=== PATIENT | male | born 1975 | race Caucasian/White ===

== ENCOUNTER 2017-09-19 08:34 | Emergency (ER) | payer OTHER ==
[2017-09-19] MEDS ORDERED: TORAdol 30 mg Injection IM ONE (08:56)
[2017-09-19] MEDS ORDERED: TORAdol 30 mg Injection ONE (09:01)
--- NOTE | 2017-09-19 09:02 | ERPHSYRPT ---
- History of Present Illness Time Seen by Provider: 09/19/17 08:57 Source: patient Exam Limitations: no limitations Physician History: 41-year-old white male arrives with complaint of pain in his left wrist since this morning at 8:00. According to the patient he was at work he was working with a piece of metal being lifted with a boom and a chain,, patient states that the patient apparently had his left wrist hyperextended and he was struck with the chain. He complains of pain in his left wrist he denies any other injury. Past medical history negative. Past surgical history negative. Social history patient denies tobacco alcohol or illicit drug use. Occurred: this morning (8 AM this morning) Method of Injury: other (wrist hyperextended by piece of metal and struck with a chain at work) Quality: aching Extremities Pain Location: wrist: left Modifying Factors: Improves With: nothing Associated Symptoms: none Allergies/Adverse Reactions: No Known Drug Allergies Allergy (Unverified 09/19/17 08:59) - Review of Systems Constitutional: No Fever, No Chills Eyes: No Symptoms Ears, Nose, & Throat: No Symptoms Respiratory: No Cough, No Dyspnea Cardiac: No Chest Pain, No Edema, No Syncope Abdominal/Gastrointestinal: No Abdominal Pain, No Nausea, No Vomiting, No Diarrhea Genitourinary Symptoms: No Dysuria Musculoskeletal: Other (left wrist pain) Skin: No Rash Neurological: No Dizziness, No Focal Weakness, No Sensory Changes Psychological: No Symptoms Endocrine: No Symptoms All Other Systems: Reviewed and Negative - Past Medical History Pertinent Past Medical History: No - Past Surgical History Past Surgical History: No - Nursing Vital Signs Nursing Vital Signs: Initial Vital Signs Temperature 97.6 F 09/19/17 08:54 Pulse Rate 94 H 09/19/17 08:54 Respiratory Rate 16 09/19/17 08:54 Blood Pressure 154/100 09/19/17 08:54 O2 Sat by Pulse Oximetry 97 09/19/17 08:54 Pain Scale Pain Intensity 10 - Physical Exam General Appearance: mild distress Eyes, Ears, Nose, Throat Exam: moist mucous membranes Neck Exam: non-tender, supple Cardiovascular/Respiratory Exam: chest non-tender, normal breath sounds, regular rate/rhythm, no respiratory distress Abdominal Exam: non-tender, No guarding Back Exam: normal inspection, No vertebral tenderness Shoulder Exam: normal inspection, non-tender, no evidence of injury, normal ROM Elbow/Forearm Exam: normal inspection, non-tender, no evidence of injury, normal ROM Wrist Exam: No normal inspection (left wrist tender with palpation, mild edema left wrist radial aspect, decreased range of motion left wrist secondary to pain , left radial and ulnar pulses are intact 2 over 4, good capillary refill all fingers sensation intact to all fingers), No non-tender Hand Exam: normal inspection, non-tender, no evidence of injury, normal ROM DTR - Upper Extremity Exam: tricep (R): 2+, tricep (L): 2+ Neuro/Tendon Exam: normal sensation, normal motor functions Mental Status Exam: alert, oriented x 3, cooperative Skin Exam: normal color, warm, dry SpO2 Interpretation: normal - Course Nursing assessment & vital signs reviewed: Yes - Radiology Exams Left Wrist X-ray Interpretation: Interpreted by me, Other (nod displaced fracture ulnar aspect left distal radius) Ordered Tests: Active Orders 24 hr Category Date Time Status Splint STAT Care 09/19/17 09:28 Active WRIST (MIN 3 VIEWS) Stat Exams 09/19/17 08:56 Taken Medication Summary Discontinued Medications Generic Name Dose Route Start Last Admin Trade Name Freq PRN Reason Stop Dose Admin Ketorolac Tromethamine 60 mg 09/19/17 08:56 09/19/17 09:03 Toradol 30 Mg Injection IM 09/19/17 08:57 60 mg STAT ONE Administration Ketorolac Tromethamine Confirm 09/19/17 09:01 Toradol 30 Mg Injection Administered 09/19/17 09:02 Dose 60 mg .ROUTE .[facility] ONE - Progress Progress: improved Progress Note: 09/19/17 09:33 41-year-old white male arrives with complaint of pain in his left wrist after a metal part which was being moved with a boom and a chainn slipped hyperextending his left wrist and he states he was struck by the chain as well this occurred at work this morning. Patient has a nondisplaced cortical fracture of the distal left radius ulnar aspect. Patient was given Toradol injection Short arm splint was applied. Patient states he plans to go back to [place] where he lives. I will give patient instructions to either follow-up with his company doctor, [facility] orthopedics clinic, or the orthopedic physician of his choice. Will write for a small amount of [place] he has been instructed not to drive on this. - Departure Time of Disposition: 09:35 Departure Disposition: Home Clinical Impression: Closed fracture of left distal radius Qualifiers: Encounter type: sequela Fracture morphology: unspecified fracture morphology Qualified Code(s): S52.502S - Unspecified fracture of the lower end of left radius, sequela Condition: Fair Critical Care Time: No Instructions: Wrist Fracture Additional Instructions: Return home. Ice to left wrist 24-48 hours. [place] 5/325 #12 one orally every 4-6 hours as needed for pain. Follow-up with your company doctor, [facility] orthopedics clinic, or the orthopedic physician of your choice Thursday. Return for acute distress or for severe symptoms. no driving or hazardous activity on [place]. May alternatively take Tylenol as needed for pain every 4 hours do not double up Tylenol with [place]. no use of left hand until cleared by your orthopedist/company doctor. Prescriptions: Hydrocodone/Acetaminophen [[place] 5-325 Tablet] 1 tab PO Q4-6HPRN PRN #12 tablet MDD 6 PRN Reason: Pain
[2017-09-19 09:48] VITALS: BP 140/90; PULSE 99; O2SAT 99
--- NOTE | 2017-09-19 18:42 | XRAY ---
Indication: Pain following injury. Comparison: None 3 views of the left wrist demonstrates incomplete transverse fracture involving the distal radius anterolaterally with soft tissue swelling. No other bony, articular, or soft tissue abnormalities.
== END 2017-09-19 10:14 | disposition home or self-care (01) ==
LOC: ED 08:34
DX: S52.502A Unspecified fracture of the lower end of left radius, initial encounter for closed fracture (principal); W31.89XA Contact with other specified machinery, initial encounter; Y99.0 Civilian activity done for income or pay
CPT/HCPCS: 73110; 96372; 99284; J1885